=== PATIENT | female | born 2005 | race American Indian/Alaskan Native ===

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

== ENCOUNTER 2025-05-31 09:42 | Emergency (ER) | payer BC ==
[2025-05-31 11:21] LABS: ETHANOL BLOOD MEDICAL 140 mg/dL (0)
[2025-05-31 12:03] VITALS: BP 142/82; PULSE 93
== END 2025-05-31 11:50 | disposition home or self-care (01) ==
LOC: DL.ED 09:42
DX: T65.91XA Toxic effect of unspecified substance, accidental (unintentional), initial encounter (principal); Z79.899 Other long term (current) drug therapy
CPT/HCPCS: 36415; 80143; 80179; 80307; 99284

== ENCOUNTER 2025-09-12 17:04 | Emergency (ER) | payer BC ==
[2025-09-12 17:27] LABS: BASOPHILS PERCENT AUTO 0.4 % (0.0-1.0); EOSINOPHILS PERCENT AUTO 0.0 % (1.0-3.0); LYMPHOCYTES PERCENT AUTO 11.5 % (20.5-50.1); MONOCYTES PERCENT AUTO 3.8 % (2-8); NEUTROPHILS PERCENT AUTO 84.3 % (42.2-75.2); PLATELET COUNT,PLT 390 10^3/uL (150-450); RED BLOOD CELL COUNT 5.18 10^6/uL (4.2-5.4); WHITE BLOOD CELL COUNT,WBC 7.9 10^3/uL (5.0-10.0)
[2025-09-12] MEDS: Ondansetron 4 MG/2 ML SDV IVPUSH ONE ×2 (17:30)
[2025-09-12] MEDS: Ketorolac 30 MG/ML SDV IVPUSH ONE (17:31)
[2025-09-12 17:43] LABS: BLOOD UREA NITROGEN,BUN 6.0 mg/dL (7-18); CARBON DIOXIDE,CO2 19.0 mmol/L (21-32); CHLORIDE,CL 101.0 mmol/L (98-107); CREATININE 0.67 mg/dL (0.55-1.02); EST CRCL DRUG DOSING (CG) 156.56 mL/min; GLUCOSE RANDOM 100.0 mg/dL (70-99); POTASSIUM,K 3.4 mmol/L (3.5-5.1); SODIUM,NA 138.0 mmol/L (136-145)
[2025-09-12 17:45] LABS: ESTIMATED GFR 127.0 mL/min (>=60)
[2025-09-12] MEDS ORDERED: Potassium Chloride 10 MEQ Tab.ER PO ONE (18:05)
[2025-09-12] MEDS ORDERED: Take Home: Ondansetron 4 MG Tab.DIS, 5 Tab Pack PO ONE (18:10)
== END 2025-09-12 18:31 | disposition home or self-care (01) ==
LOC: DL.ED 17:04
DX: B34.9 Viral infection, unspecified (principal); Z79.899 Other long term (current) drug therapy
CPT/HCPCS: 36415; 80048; 83735; 85025; 96361; 96374; 96375; 99284; J1885; J2405; J7030